=== PATIENT | male | born 1955 | race Caucasian/White ===

== ENCOUNTER 2020-09-16 19:02 | Emergency (ER) | payer MEDICAID ==
[~2020-09-16] VITALS: Ht 182.9 cm; Wt 81.7 kg
--- NOTE | ~2020-09-16 | EMS ---
[address] [address] EMS Patient Care Report Name: ROCCO HERNANDEZ Room #: REG DESTINY Sprague#: [id number] Admission: 09/16/20 Attend Phys: Discharge: Date of : 59 Report #: [id number] THIS REPORT FOR: //name// Report Transmitted: 09/16/2020 19:34 EMS Care Summary [facility] MED-ACT Incident [id number] @ 09/16/2020 18:16 Incident Location [address] [place] [address] Patient ROCCO HERNANDEZ Male, 65 Years 1955 Patient Address [address] [place] [address] Patient History Behavioral/Psychiatric Disorder,Dementia,Hypertension (HTN),Hyperlipidemia,Type 2 Diabetes, Patient Allergies No known allergies, Patient Medications Benazepril, Metformin, Melatonin, Citalopram, Trazodone, Atorvastatin, Gabapentin, Chief Complaint fall Disposition Transported No Lights/[place] Dispatch Reason Falls Transported To [facility] Narrative [address] [address] EMS Patient Care Report Name: ROCCO HERNANDEZ Room #: REG Darcie#: [id number] Admission: 09/16/20 Attend Phys: Discharge: Date of : 59 Report #: [id number] EMS arrived to pt laying supine on the hallway floor being assessed by S47. Staff stated they witnessed the pt fall to the ground. Pt said he just got his feet entangled and tripped. Staff denied complaints from the pt prior/loss of consciousness/blood thinners. Pt denied new neck or back pain/visual disturbances/nausea/headache. Pt did say his eye was "just a little bit sore". Pt has chronic neck and left shoulder pain. He denied any change after the fall. Pt assisted to sitting then standing. Pt sat on cot, secured. Pt to MICU. En route pt said his eye was "sore" but not getting any worse. Biocom- no orders req/rec Pt to room 9, sheet lifted to bed, verbal report to RN Initial Vitals @18:44P: 92,BP: 121/79,SpO2: 96, @PTAP: 96,BP: 151/91,GCS: 14, @18:37P: 97,R: 20,BP: 118/76,Pain: 2/10,GCS: 14,SpO2: 96,Revised Trauma: 12, Assessments @18:26MENTAL:Confused,Person Oriented,Event Oriented,Place Oriented,SKIN:HEENT:Head/Face: Other,Neck/Airway: No Abnormalities,LUNG SOUNDS:General: No Abnormalities,ABDOMEN:General: No Abnormalities,PELVIS//GI:No Abnormalities,EXTREMITIES:Left Arm: No Abnormalities,Right Arm: No Abnormalities,Left Leg: No Abnormalities,Right Leg: No Abnormalities,PULSE:NEURO:No Abnormalities, Impression Injury of Head Procedures @18:30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 PatientResponse: Unchanged@18:26ALS AssessmentResponse: UnchangedSucceeded 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,BP: 151/91 M,PULSE: 96,RR: R,SPO2: Ox,ETCO2: ,BG: ,PAIN: ,GCS: 14, 18:14,Call Received 18:14,Psap Call 18:16,Dispatched 18:17,En Route 18:23,On Scene 18:25,At Patient 18:26,ALS Assessment,Response: UnchangedSucceeded, 18:30,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 Patient,Response: Unchanged 18:35,Depart Scene 18:37,BP: 118/76 M,PULSE: 97,RR: 20 R,SPO2: 96 Ox,ETCO2: ,BG: ,PAIN: 2,GCS: 14, 18:44,BP: 121/79 M,PULSE: 92,RR: R,SPO2: 96 Ox,ETCO2: ,BG: ,PAIN: ,GCS: , 18:45,At Destination [address] [address] EMS Patient Care Report Name: ROCCO HERNANDEZ Room #: REG [facility].#: [id number] Admission: 09/16/20 Attend Phys: Discharge: Date of : 59 Report #: [id number] 19:09,Call Closed Disclaimer v1.1 Copyright 2020 [employer] This EMS Care Summary contains data elements from the applicable legal record (which may be displayed differently). It is designed to provide pertinent information for the following purposes: continuity of care, clinical quality, and state data reporting. The complete legal record is available to ED staff and administrators of the receiving hospital in [facility]'s Patient Tracker. All data is provided "as is."
[2020-09-16] MEDS ORDERED: ACETAMINOPHEN325 M1 PO (21:38)
[2020-09-16] MEDS ORDERED: LIPITOR 40 MG T40 M1 PO (21:38)
[2020-09-16] MEDS ORDERED: CELEXA 20 MG TA20 MG PO (21:40)
[2020-09-16] MEDS ORDERED: BENAZEPRIL HCL20 MG PO (21:40)
[2020-09-16] MEDS ORDERED: NEURONTIN 400400 M1 PO (21:41)
[2020-09-16] MEDS ORDERED: MELATONIN3 M1 PO (21:41)
[2020-09-16] MEDS ORDERED: SUPER THERAVIT1 EACH PO (21:43)
[2020-09-16] MEDS ORDERED: METFORMIN HCL500 MG PO (21:43)
[2020-09-16] MEDS ORDERED: TRAZODONE HCL100 MG PO (21:44)
== END 2020-09-16 22:34 | disposition home or self-care (01) ==
LOC: ER 19:02
DX: S01.111A Laceration without foreign body of right eyelid and periocular area, initial encounter (principal); S80.02XA Contusion of left knee, initial encounter; Z79.899 Other long term (current) drug therapy; W18.39XA Other fall on same level, initial encounter; Y93.89 Activity, other specified; Y92.89 Other specified places as the place of occurrence of the external cause; Y99.8 Other external cause status

== ENCOUNTER 2021-03-10 03:40 | Inpatient (IN) | payer MEDICAID ==
[~2021-03-10] VITALS: Ht 180.3 cm; Wt 81.1 kg
[2021-03-10] VITALS (34 sets, daily range): BP systolic 91–154; BP diastolic 41–77
--- NOTE | ~2021-03-10 | EMS ---
[address] [address] EMS Patient Care Report Name: ROCCO HERNANDEZ Room #: 170-6 ADM IN M.R.#: [id number] Admission: 03/10/21 Attend Phys: Myra Lozoya MD Discharge: Date of : 59 Report #: [id number] THIS REPORT FOR: //name// Report Transmitted: 03/10/2021 04:32 EMS Care Summary [facility] MED-ACT Incident [id number] @ 03/10/2021 02:56 Incident Location [address] [place] [address] Patient ROCCO HERNANDEZ Male, 65 Years 1955 Patient Address [address] [place] [address] Patient History Behavioral/Psychiatric Disorder,Dementia,Hypertension (HTN),Hyperlipidemia,Type 2 Diabetes, Patient Allergies No known allergies, Patient Medications Benazepril, Trazodone, Atorvastatin, Citalopram, Gabapentin, Melatonin, Metformin, Chief Complaint Cough Disposition Transported No Lights/[place] Dispatch Reason Choking Transported To [facility] Narrative [address] [address] EMS Patient Care Report Name: ROCCO HERNANDEZ Room #: 170-6 ADM IN M.R.#: [id number] Admission: 03/10/21 Attend Phys: Myra Lozoya MD Discharge: Date of : 59 Report #: [id number] History- Pt is found laying upright in bed and appears to be sleeping. RN states that when she got on shift at 1800 the pt was more lethargic than normal and sitting slumped in his chair. She notes that he did not eat dinner and then sometime after dinner developed a productive cough that he is not able to fully clear his airway. She states that when she checked his vitals his SPO2 on room air was in the 80s and she placed him on a NC at 2LPM. Pt is able to open his eyes when you talk to him and follow commands but is overall very lethargic. Pt has a history of dementia and is normally altered but not to this extent. Pt's cough is very wet sounding and his lung sounds are course throughout. Pt is unable to complete a stroke scale but is able to use both arms and does not appear to have any facial droop or slurred speech. Pt feels hot to the touch but is afebrile. Pt denies any complaints. Treatment- Vitals. O2 is increased to 4LPM. Pt is transported to [place] and moved to the bed by sheet drag. Report given to the RN. Initial Vitals @03:29P: 104,R: 16,BP: 136/75,SpO2: 96, @03:11P: 104,R: 16,BP: 137/73,Pain: 0/10,GCS: 13,Temp: 98.4F,Glucose: 136,SpO2: 92,Revised Trauma: 12, Assessments @03:34MENTAL:Confused,Person Oriented,SKIN:Hot,HEENT:Neck/Airway: Other,Eyes: Left Pupil: 4-mm,Eyes: Right Pupil: 4-mm,Head/Face: No Abnormalities,LUNG SOUNDS:General: No Abnormalities,Left Upper: No Abnormalities,Right Upper: No Abnormalities,Left Lower: No Abnormalities,Right Lower: No Abnormalities,ABDOMEN:General: No Abnormalities,Left Upper: No Abnormalities,Right Upper: No Abnormalities,Left Lower: No Abnormalities,Right Lower: No Abnormalities,PELVIS//GI:EXTREMITIES:Left Arm: No Abnormalities,Right Arm: No Abnormalities,Left Leg: No Abnormalities,Right Leg: No Abnormalities,PULSE:Radial: 2+ Normal,NEURO:No Abnormalities, Impression Cough Procedures @PTA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 PatientResponse: Unchanged@03:15Oxygen FlowRate: 4 Device: Nasal Cannula (NC) Response: ImprovedSucceeded 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,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 Patient,Response: Unchanged 02:55,Call Received 02:55,Psap Call 02:56,Dispatched 02:58,[place] [address] EMS Patient Care Report Name: ROCCO HERNANDEZ Room #: 170-6 ADM IN .R.#: [id number] Admission: 03/10/21 Attend Phys: Myra Lozoya MD Discharge: Date of : 59 Report #: [id number] 03:05,On Scene 03:07,At Patient 03:11,BP: 137/73 M,PULSE: 104,RR: 16 R,SPO2: 92 Ox,ETCO2: ,B,PAIN: 0,GCS: 13, 03:15,Oxygen FlowRate: 4 Device: Nasal Cannula (NC) Response: ImprovedSucceeded, 03:25,Depart Scene 03:29,BP: 136/75 M,PULSE: 104,RR: 16 R,SPO2: 96 Ox,ETCO2: ,BG: ,PAIN: ,GCS: , 03:36,At Destination 03:52,Call Closed Disclaimer v1.1 Copyright 2020 [employer] This EMS Care Summary contains data elements from the applicable legal record (which may be displayed differently). It is designed to provide pertinent information for the following purposes: continuity of care, clinical quality, and state data reporting. The complete legal record is available to ED staff and administrators of the receiving hospital in [employer]'s Patient Tracker. All data is provided "as is."
[~2021-03-10 03:40] MED LIST: ACETAMINOPHEN325 M1 PO; BENAZEPRIL HCL20 MG PO; CELEXA 20 MG TA20 MG PO; LIPITOR 40 MG T40 M1 PO; MELATONIN3 M1 PO; METFORMIN HCL500 MG PO; NEURONTIN 400400 M1 PO; SUPER THERAVIT1 EACH PO; TRAZODONE HCL100 MG PO
[2021-03-10] MEDS ORDERED: ASA81BEC PO (03:52)
[2021-03-10] MEDS ORDERED: LIPITOR 20 MG T20 M1 PO (03:53)
[2021-03-10] MEDS ORDERED: VITAMIN B-121000 MC2 PO (03:54)
[2021-03-10] MEDS ORDERED: MILK OF MA400 MG/5 M PO (03:56)
[2021-03-10 04:05] LABS: BE(vivo) 1.5 mmol/L (-2 to +3); HCO3 27.8 mmol/L (22.0-26.0); PCO2 50.1 mmHg (35.0-45.0); PO2 55.5 mmHg (80.0-100.0); pH 7.362 (7.360-7.450); sO2 87.5 % (92.0-98.0)
[2021-03-10 04:16] LABS: ABSOLUTE NEUTROPHILS 9.9 thou/uL (1.4-8.2); BASOPHILS 0.5 % (0.0-2.0); EOSINOPHILS 0.4 % (0.0-3.0); HEMATOCRIT 44.3 % (42.0-52.0); HEMOGLOBIN 14.7 gm/dL (14.0-18.0); LYMPHOCYTES 13.3 % (24.0-44.0); MCH 28.5 pg (26.0-34.0); MCHC 33.2 g/dL (28.0-37.0); MONOCYTES 10.6 % (1.0-8.0); PLATELET COUNT 162 thou/uL (150-400); POLYS 75.2 % (36.0-66.0); RBC 5.16 mil/uL (4.50-6.00); RDW 13.4 % (10.5-14.5); WBC 13.2 thou/uL (4.0-11.0)
[2021-03-10 04:23] LABS: ANION GAP 13 mmol/L (7-16); BUN 22 mg/dL (7-18); CALCIUM 8.9 mg/dL (8.5-10.1); CHLORIDE 100 mmol/L (98-107); CO2 27 mmol/L (21-32); CREATININE 1.2 mg/dL (0.7-1.3); GLUCOSE 172 mg/dL (74-106); POTASSIUM 4.2 mmol/L (3.5-5.1); SODIUM 140 mmol/L (136-145)
[2021-03-10 04:28] LABS: URINE BILIRUBIN NEGATIVE (Negative); URINE BLOOD 1+ (Negative); URINE CLARITY CLEAR; URINE COLOR YELLOW; URINE GLUCOSE-RANDOM* NEGATIVE (Negative); URINE KETONES TRACE (Negative); URINE LEUKOCYTES-REFLEX NEGATIVE (Negative); URINE NITRITE-REFLEX NEGATIVE (Negative); URINE PROTEIN (DIPSTICK) NEGATIVE (Negative); URINE SPECIFIC GRAVITY 1.025 (1.005-1.035); URINE UROBILINOGEN 0.2 E.U./dl (0.2-1.0)
[2021-03-10 04:33] LABS: ALBUMIN 3.9 g/dL (3.4-5.0); DIRECT BILIRUBIN 0.2 mg/dL (<0.1-0.2); MAGNESIUM 1.9 mg/dL (1.8-2.4); PHOSPHORUS 3.9 mg/dL (2.5-4.9); SGOT 19 U/L (15-37); SGPT 20 U/L (30-65); TOTAL BILIRUBIN 0.7 mg/dL (0.2-1.0); TOTAL PROTEIN 7.2 g/dL (6.4-8.2); TROPONIN-I <0.06 ng/mL (<0.06)
[2021-03-10 05:02] LABS: BACTERIA-REFLEX None Seen /HPF (None Seen); CASTS None Seen /LPF (None Seen); CRYSTALS None Seen /LPF (None Seen); MUCUS None Seen strn/LPF (None Seen); SQUAMOUS None Seen /LPF (0-3); URINE RBC 3-10 Few /HPF (NONE SEEN); URINE WBC-REFLEX None Seen /HPF (0-5)
[2021-03-10 05:03] LABS: TRANSITIONAL EPITHEL CELL 0-3 Few /LPF (None Seen)
[2021-03-10 05:26] LABS: BE(vivo) 1.8 mmol/L (-2 to +3); HCO3 27.8 mmol/L (22.0-26.0); PCO2 48.8 mmHg (35.0-45.0); PO2 99.8 mmHg (80.0-100.0); pH 7.373 (7.360-7.450); sO2 97.3 % (92.0-98.0)
--- NOTE | 2021-03-10 08:45 | NUR ---
discussed during am rounds and los. cm unable to visit with him rt on bipap.
--- NOTE | 2021-03-10 08:50 | EKG ---
[address] [address] ELECTROCARDIOGRAM REPORT Name: DAVIDROCCO Khadijah Room #: 247-P ADM IN M.R.#: [id number] Admission: 03/10/21 Attend Phys: Myra Lozoya MD Discharge: Date of : 59 Report #: [id number] [facility] ED Test Date: 2021-03-10 Test Time: 03:58:35 Pat Name: ROCCO HERNANDEZ Department: Room: 247 Gender: M Paraplanner: KARINA : 1955 Requested By: Kenn Tam Order Number: [id number] MD: Andres Cazares Measurements Intervals [place] Rate: 103 P: 33 ID: 142 QRS: 22 QRSD: 88 T: 29 QT: 365 QTc: 478 Interpretive Statements Sinus tachycardia Borderline prolonged QT interval No previous ECG available for comparison Electronically Signed On 03-10-2021 8:50:46 CDT by Andres Cazares [email or web address] <ELECTRONICALLY SIGNED> By: Andres Cazares MD, [facility] 03/10/21 0850 [id number] Andres Cazares MD, FACC /EPI
--- NOTE | 2021-03-10 12:24 | NUR ---
SPEAKING WITH [facility]HA CASE MANAGEMENT, PT IS INDEED FROM [facility] [place] USED TO BE CALLED FALSE PASS. PER TRISHA, PT HAS A GUARDIAN FOR CARE, ALSO WAS TOLD THAT CARDIAC MONITORING DEVICE WAS SUPPOSED TO ARRIVE WITH PATIENT OR SHOULD BE NEXT TO PT IN BED AT THE PRIOR FACILITY, CM WAS WONDERING IF THE DEVICE WAS SET UP HERE, PT HAS NO BELONGINGS IN THE ROOM AT THIS TIME. PAST HISTORY OF COVID, AND RECEIVED 2 ROUNDS OF VACCINE. PT IS ON REG DIET BACK AT THE FACILITY
--- NOTE | 2021-03-10 23:34 | NUR ---
PT ORIENTED TO PERSON AND SOMETIMES PLACE. DENIES ANY PAIN. NO SOA NOTED. FREQUENT NON-PRODUCTIVE COUGH. COUGH BETTER AFTER PRN GUAIFENESIN AND RT TX. SPO2 >92% ON 4L NC. HE IS VERY RESTLESS IN THE BED, PICKING AT LINES AND AT TIMES TRYING TO GET OUT OF BED TO URINATE. FREQUENT ORIENTATION PROVIDED. NOTIFIED SHEAR OPERATOR MARE OF PT'S INSOMNIA AND RESTLESSNESS. ORDERS RECEIVED. WILL GIVE SLEEPING MEDICATION AND MONITOR FURTHER.
[2021-03-11] VITALS (13 sets, daily range): BP systolic 124–159; BP diastolic 49–83
--- NOTE | 2021-03-11 03:40 | NUR ---
PT SLEPT FOR A SHORT WHILE AFTER RECEIVING SLEEPING MEDICATION. HE THEN BECAME VERY RESTLESS, TRYING TO GET OUT OF BED, TAKING OFF HIS OXYGEN AND DISCONNECTING LINES/TUBING. NOTIFIED FERRYBOAT HELPER MARE. IM OLANZAPINE GIVEN. PT'S BEHAVIOR IMPROVED SLIGHTLY. HE STILL OCCASSIONALLY TAKES OFF HIS OXYGEN AND ATTEMPTS TO GET OUT OF BED. BED ALARM ON. FALL PRECAUTIONS IN PLACE. HE IS EASILY REDIRECTED BUT DOES NOT REMEMBER INSTRUCTIONS FOR LONG. VSS. NO SOA NOTED. NOT PROGRESSING WELL TOWARD POC GOALS. WILL CONTINUE TO MONITOR FURTHER.
[2021-03-11 05:14] LABS: HEMATOCRIT 39.2 % (42.0-52.0); HEMOGLOBIN 13.1 gm/dL (14.0-18.0); MCH 28.8 pg (26.0-34.0); MCHC 33.5 g/dL (28.0-37.0); MCV 86.1 fL (80.0-100.0); RBC 4.55 mil/uL (4.50-6.00); RDW 13.5 % (10.5-14.5); WBC 8.3 thou/uL (4.0-11.0)
[2021-03-11 05:19] LABS: CALCIUM 8.8 mg/dL (8.5-10.1); CREATININE 1.1 mg/dL (0.7-1.3); POTASSIUM 3.5 mmol/L (3.5-5.1)
--- NOTE | 2021-03-11 05:47 | NUR ---
TITRATED OXYGEN DOWN FROM 4L NC TO 2LNC. PT TOOK OFF OXYGEN AGAIN. HIS SPO2 IS CURRENTLY 92-95% ON RA. PROGRESSING TOWARD RESPIRATORY POC GOALS.
--- NOTE | 2021-03-11 08:34 | NUR ---
PT REFUSING BREAKFAST, STATING, "I DON'T USUALLY EAT BREAKFAST." PT OFFERED ENSURE, PUDDING OR SOMETHING TO DRINK. PT DECLINED. WILL CONTINUE TO ENCOURAGE PO INTAKE.
--- NOTE | 2021-03-11 17:41 | NUR ---
SPOKE W/ PT'S GUARDIAN, IBETH, UPDATE GIVEN. PT MORE ALERT, STILL CONFUSED TO PLACE, TIME AND SITUATION. PT MOSTLY REDIRECTABLE. STILL ATTEMPTS TO UNSAFELY EXIT THE BED AND NEEDS CLOSE SUPERVISION. PT'S PO INTAKE IMPROVED. PT ON ROOM AIR WITHOUT PROBLEMS. OVERALL, PT PROGRESSING TOWARD GOALS.
[2021-03-12 05:20] LABS: HEMATOCRIT 35.7 % (42.0-52.0); HEMOGLOBIN 12.3 gm/dL (14.0-18.0); MCH 29.3 pg (26.0-34.0); MCHC 34.4 g/dL (28.0-37.0); MCV 85.2 fL (80.0-100.0); RBC 4.19 mil/uL (4.50-6.00); RDW 12.9 % (10.5-14.5)
[2021-03-12 05:43] LABS: CALCIUM 9.2 mg/dL (8.5-10.1); CREATININE 1.1 mg/dL (0.7-1.3); POTASSIUM 4.3 mmol/L (3.5-5.1)
[2021-03-12 05:47] VITALS: BP 136/73
--- NOTE | 2021-03-12 06:17 | NUR ---
PT MAKING SLOW PROGRESS TOWARDS GOALS. PT ABLE TO TAKE PUDDING AND NECTAR THICK FLUIDS WITHOU COUGHING/CHOKING. DID NEED TO CRUSH MEDS PT WOULD SPIT THEM OUT BEFORE SWALLOWING. ORIENTED TO NAME BUT NOT LOCATION, DATE OR SITUATION. OVERNIGHT NIGHT PT INSISTED THAT HE WAS IN A STORAGE ROOM NOT IN A HOSPITAL. PT ALSO UNABLE TO RETAIN INSTRUCTIONS TO KEEP TELEMETRY LEADS ON. PT FREQUENTLY PULLING THE LEADS OFF. REPLACED ON MULTIPLE OCCASIONS. DID OBTAIN ORDER TO SPOT CHECK AND FOR PROVIDER TO DECIDE NEED FOR TELEMETRY TODAY.
[2021-03-12 07:38] VITALS: BP 126/84
--- NOTE | 2021-03-12 12:09 | HC ---
[facility] [place] [address] CONSULTATION Name: ROCCO HERNANDEZ Khadijah Room #: 351-P ADM IN M.R.#: [id number] Admission: 03/10/21 Attend Phys: Myra Lozoya MD Discharge: Date of : 59 Report #: [id number] THIS REPORT FOR: cc: Meka Gautam MD, Lou K. MD Barry, Joseph W. MD ~ DOC #: [id number] Chris Leyva MD DATE OF SERVICE: 03/11/2021 INFECTIOUS DISEASE CONSULTATION ATTENDING PHYSICIAN: Dr. Lozoya. REASON FOR EVALUATION: Pneumonitis, complicated by respiratory failure, also has Gram-positive septicemia. HISTORY OF PRESENT ILLNESS: Chart was reviewed. The patient examined. This is a 65-year-old gentleman who has underlying COPD, who lives in a facility with underlying depression, psychosis disorder who additionally has type 2 diabetes mellitus complicated by stroke, vasculopathy who was noted to have increasing dyspnea, also more encephalopathy. He is unable to give too much details of the history, is not sure where he is at. Apparently, he has had productive cough, not certain about fevers. He reports some chills. Initial ABGs showed hypoxemia, pO2 of 55.5 on 4 liters. Lactic acid was 1.1. Influenza antigen was negative. Coronavirus testing was negative. Urinalysis was otherwise unremarkable. Chest x-ray did show right basilar pneumonitis. As far as the evaluation, blood cultures were collected at time of admission, now on 2 growing gram-positive cocci. He is currently on supplemental oxygen 2 liters per nasal cannula. ALLERGIES: None known. MEDICATIONS: Include methylprednisolone, enoxaparin, melatonin, trazodone, olanzapine, famotidine, guaifenesin, budesonide, ipratropium, albuterol inhaler, citalopram, lisinopril, azithromycin, vancomycin, and received ceftriaxone. PAST MEDICAL HISTORY: As noted above, history of dementia, hypertension, known vasculopathy with previous NE, CVA, diabetes mellitus. SOCIAL HISTORY: Unknown. FAMILY HISTORY: Noncontributory. REVIEW OF SYSTEMS: Not reliably obtained. [address] [address] CONSULTATION Name: DAVIDROCCO Khadijah Room #: 351-P [facility] IN ..#: [id number] Admission: 03/10/21 Attend Phys: Myra Lozoya MD Discharge: Date of : 59 Report #: [id number] PHYSICAL EXAMINATION: GENERAL: He appears chronically ill and undernourished. He does arouse. He is quite encephalopathic, mild to moderate distress. VITAL SIGNS: Temperature 98.5, pulse 76, respirations 13, blood pressure 141/62. SKIN: Warm, dry, no rashes. HEENT: Normocephalic. Extraocular muscles intact. Nasal cannula in place. NECK: Supple. LUNGS: Scattered coarse breath sounds, diminished overall. HEART: Regular, occasional ectopy, has a soft systolic murmur. ABDOMEN: Mildly distended, slightly firm, nontender. EXTREMITIES: No cyanosis. GENITOURINARY AND RECTAL: Deferred. LABORATORY DATA: Again blood cultures 1 out of 2 with gram-positive cocci. Most recent electrolytes, sodium 140, potassium 3.5, chloride 102, bicarbonate is 32, anion gap of 6, BUN and creatinine 15 and 1.1, glucose of 125. CBC: White count of 8.3, H and H 13.1 and 32.9, platelets of 153. CTA chest PE protocol showed no evidence of PE, right basilar partially consolidative infiltration with some mucus plugging. Normal heart size, calcified coronary artery, implanted electronic cardiac device. Urinalysis unremarkable. ASSESSMENT AND PLAN: 1. Pneumonitis, likely on a basis of aspiration. The patient did get some significant underlying issues. We will continue broad spectrum therapy. We will add gram-negative coverage in addition to vancomycin in the event of 1/2 positive blood cultures may well be a false positive or contaminant, could be pneumococcus. We will await the ID and susceptibilities as information becomes available. He remains quite tenuous. At this point, we will continue to monitor expectantly. Overall, prognosis appears guarded. MD RAJEEV Valentin/SAWYER <ELECTRONICALLY SIGNED> By: Chris Leyva MD 03/12/21 1209 [id number] Chris Leyva MD /nt
--- NOTE | 2021-03-12 13:48 | NUR ---
PRASHANTH reviewed chart and spoke with nursing and attending physician. Pt was transferred to from ICU. Pt is progressing towards goals for discharge. Pt is on IV abx and IV steroids. PT/OT ordered today. ST is following. Pureed diet and nectar thickened liquids are being recommended at this time. PRASHANTH faxed updated clinical info to Maddy, in admissions at [facility], for review. PRASHANTH requested DPOA documentation to be faxed to PRASHANTH, to place on pt's chart. Jose Anthony is pt's DPOA. PRASHANTH spoke with Jose via phone to provide update. Contact info for PRASHANTH and nurses station provided to Jose. Plan is for pt to return to [facility] when medically stable. PRASHANTH is following to assist as needed with discharge planning.
[2021-03-12 15:32] VITALS: BP 128/89
--- NOTE | 2021-03-12 17:45 | NUR ---
PATIENT HAS NO C/O SHORTNESS OF BREATH OR CHEST PAIN. PATIENT FOLLOWING ASPIRATION PRECAUTION ORDERS AND DIET ORDERS. PATIENT ACCIDENTALLY PULLED OUT IV DURING TRANSFER FROM CHAIR TO BED, REPLACED IV. NO OTHER ACUTE CHANGES THIS SHIFT, SEE CHARTING.
[2021-03-12 20:27] VITALS: BP 138/69
--- NOTE | 2021-03-12 22:51 | NUR ---
PT BECAME AGITATED DURING SHIFT REPORT. PT BEGAN YELLING AND WAS DEMANDING TO "GO INSIDE." HE STATED HE WAS "ON A BASKETBALL COURT" AND THAT HE "WANTS TO GO INSIDE" TO HIS ROOM. ATTEMPTED REALITY ORIENTATION PT WAS STANDING NEXT TO THE BED BY DIRECTING HIM TO LOOK AT THE BED AND TO LOOK AT THE CEILING TO TAKE. THIS DID NOT AID HIM IN RECOGNIZING THAT HE WAS IN A ROOM HE CONTINUED TO INSIST HE WAS ON A BASKETBALL COURT AND DEMANDED TO GO INSIDE. UNABLE TO DIRECT PT FROM LEAVING THE ROOM. PT DID BALL UP HIS FISTS AND BEGIN TO RAISE THEM WHEN HE WAS GRABBED BY STAFF AND WALKED BACK TO BED. PT WAS YELLING, CUSSING ON ONCE IN BED WAS TRYING TO KICK AND AND PUSH PEOPLE OFF HIS ARMS. BL SOFT WRIST RESTRAINTS PLACED AND ORDER OBTAINED FROM LIP. ZYPREXA IM DOSE GIVEN. AT 2150 PT CALM, ORIENTED TO NAME AND "I GUESS SO" WHEN ASKED IF HE WAS AWARE HE WAS IN THE HOSPITAL. PT THEN STARTED COUGHING, ATTEMPTING TO CLEAR HIS THROAT. HE WAS ALSO OBSERVED SNORTING IF HE WAS ATTEMPTING TO PULL AND CLEAR SOME SECRETIONS. RESTRAINTS REMOVED WHILE PT WAS COUGHING. RN STAYED AT BEDSIDE WHILE PT HAD A FEW MOMENTS OF HARSH COUGHING. SMALL AMOUNTS OF CLEAR STRINGY SPUTUM SPIT OUT. COUGHING SPELL LASTED APPROXIMATELY 10 MINUTES. KEPT RESTRAINTS OFF IN CASE PT WOULD POSSIBLE DISPLAY THE UNIVERSAL SIGN OF CHOKING BUT NOT BE ABLE TO VERBALIZE IT. FORTUNATELY THIS ALL SUBSIDED IN ABOUT TEN MINUTES. DID LEAVE RESTRAINTS OFF. PT DID GET UP ONCE AND WAS LOOKING AROUND HIS ROOM FOR HIS BLUE SUITCASE WHICH IS IN "ROOM 313." PT WOULD NOT ACCEPT REALITY ORIENTATION THAT HE WAS NOT IN HIS HOME FACILITY, THAT HE WAS IN THE HOSPITAL IN ROOM 351. VISUAL AND VERBAL CUES WERE UNSUCCESFUL IN REORIENTING HIM. AFTER A FEW MINUTES OF CUSSING PT LAYED DOWN BACK IN BED. "YOU ALL JUST WANT TO ARGUE WITH ME, LIKE YOU ALL FUCKING KNOW EVERYTHING." WILL HOLD OFF ON PO FOR THE NIGHT EXCEPT SWABS AND ASK DAY RN TO DISCUSS WITH PHYSICIAN FOR ANY FURTHER NEED TO EVAL SWALLOWING.
[2021-03-13 05:31] VITALS: BP 127/71
[2021-03-13 05:33] LABS: HEMATOCRIT 37.7 % (42.0-52.0); HEMOGLOBIN 12.6 gm/dL (14.0-18.0); MCH 28.6 pg (26.0-34.0); MCHC 33.5 g/dL (28.0-37.0); MCV 85.4 fL (80.0-100.0); RBC 4.41 mil/uL (4.50-6.00); RDW 13.1 % (10.5-14.5); WBC 10.1 thou/uL (4.0-11.0)
[2021-03-13 06:02] LABS: CALCIUM 9.3 mg/dL (8.5-10.1); CREATININE 1.1 mg/dL (0.7-1.3); POTASSIUM 3.4 mmol/L (3.5-5.1)
[2021-03-13 07:47] VITALS: BP 147/79
--- NOTE | 2021-03-13 13:36 | NUR ---
SW reviewed chart and spoke with nursing and attending physician. Pt is progressing towards goals for discharge. Discharge back to [facility] is anticipated for tomorrow. Pt is on IV abx and IV steroids. Pt became agitated last evening and was placed in restraints. Pt has been out of restraints since early this morning. PRASHANTH faxed clinical/therapy updates to [facility]. Spoke with Maddy in admissions, who confirms they are able to accept pt back tomorrow. The facility will arrange transportation. PRASHANTH left voice message for pt's DPOA, Jose, to provide update and notify of anticipated discharge for tomorrow. DPOA ppwk placed on pt's chart. SW is following to assist as needed with discharge planning.
[2021-03-13 15:51] VITALS: BP 154/92
--- NOTE | 2021-03-13 17:01 | NUR ---
assumed care of pt at 0700. pt in no acute distress. confused. impulsive. otherwise largely cooperative. mostly impulsive when needing to void. small appetite. needs frequent redirection and reorientation. anticipate d/c back to facility tomorrow.
[2021-03-13 19:45] VITALS: BP 138/76
[2021-03-14 05:26] LABS: HEMATOCRIT 36.8 % (42.0-52.0); HEMOGLOBIN 12.3 gm/dL (14.0-18.0); MCH 28.6 pg (26.0-34.0); MCHC 33.5 g/dL (28.0-37.0); MCV 85.4 fL (80.0-100.0); RBC 4.31 mil/uL (4.50-6.00); RDW 13.2 % (10.5-14.5); WBC 9.1 thou/uL (4.0-11.0)
[2021-03-14 05:37] LABS: CALCIUM 8.8 mg/dL (8.5-10.1); POTASSIUM 3.1 mmol/L (3.5-5.1)
[2021-03-14 05:54] VITALS: BP 124/80
[2021-03-14 06:59] VITALS: BP 146/87
--- NOTE | 2021-03-14 07:26 | NUR ---
PT MAKING POOR PROGRESS TOWARDS GOALS. ORIENTED TO NAME BUT NOT ABLE TO ORIENT PATIENT TO DATE, LOCATION OR SITUATION. PT WAS ABLE TO STATE "I DON'T REALLY KNOW WHERE I AM."
[2021-03-14 08:10] VITALS: BP 146/87
[2021-03-14] MEDS ORDERED: CEFDINIR300 MG PO (10:30)
--- NOTE | 2021-03-14 12:49 | NUR ---
DISCHARGE NOTE: PRASHANTH reviewed chart and spoke with nursing and attending physician. Pt is medically stable to return to [facility] today. PRASHANTH spoke with Maddy in admissions to provide update and notify of discharge. W/c van transportation scheduled for 1600 today per facility's arrangements. Awaiting finalized discharge orders/summary at this time. PRASHANTH left voice message for pt's DPOA, Jose, to notify of discharge. Chart copy requested. Nursing provided with number to call report. PRASHANTH is following to finalize discharge plan.
[2021-03-14] MEDS ORDERED: IPRAT-ALBUT 0.5-3 ML INH (13:26)
[2021-03-14] MEDS ORDERED: PREDNISONE 10 M10 M1 PO (13:27)
--- NOTE | 2021-03-14 15:20 | NUR ---
ASSUMED PATIENT CARE AT 0700. ALERT TO SELF. AMBULATED IN ROOM. NO DISTRESS NOTED. DC TO SNF NOW.
== END 2021-03-14 15:19 | DRG 871 ==
LOC: ER 03:40 → ICU 05:05 → EROBS 05:05 → ICU 06:41 → 3W 03-11 20:15
PROVIDERS: Emergency Medicine; Hospitalist; ADMIT Internal Medicine; ATTEND Internal Medicine
PROC: 5A09357 Assistance with Respiratory Ventilation, Less than 24 Consecutive Hours, Continuous Positive Airway Pressure (ICD-10-PCS; principal; 2021-03-10)
DX: A41.9 Sepsis, unspecified organism (principal); J69.0 Pneumonitis due to inhalation of food and vomit; J96.01 Acute respiratory failure with hypoxia; F03.91 Unspecified dementia, unspecified severity, with behavioral disturbance; J44.1 Chronic obstructive pulmonary disease with (acute) exacerbation; M31.9 Necrotizing vasculopathy, unspecified; G93.40 Encephalopathy, unspecified; T17.908A Unspecified foreign body in respiratory tract, part unspecified causing other injury, initial encounter; I10 Essential (primary) hypertension; D72.829 Elevated white blood cell count, unspecified; I25.10 Atherosclerotic heart disease of native coronary artery without angina pectoris; E86.0 Dehydration; J44.9 Chronic obstructive pulmonary disease, unspecified; X58.XXXA Exposure to other specified factors, initial encounter; F32.9 Major depressive disorder, single episode, unspecified; E11.9 Type 2 diabetes mellitus without complications; Z20.822 Contact with and (suspected) exposure to COVID-19; Z79.899 Other long term (current) drug therapy; Z79.84 Long term (current) use of oral hypoglycemic drugs; Z79.82 Long term (current) use of aspirin; I25.2 Old myocardial infarction; Z86.73 Personal history of transient ischemic attack (TIA), and cerebral infarction without residual deficits; Y93.89 Activity, other specified; Y92.89 Other specified places as the place of occurrence of the external cause; Y99.8 Other external cause status
CPT/HCPCS: 10078; 10879

== ENCOUNTER 2021-06-19 11:15 | Inpatient (IN) | payer OTHER, MEDICAID ==
[~2021-06-19] VITALS: Ht 180.3 cm; Wt 89.9 kg
[~2021-06-19 11:15] MED LIST changes: +ASA81BEC PO; +CEFDINIR300 MG PO; +IPRAT-ALBUT 0.5-3 ML INH; +LIPITOR 20 MG T20 M1 PO; +MILK OF MA400 MG/5 M PO; +PREDNISONE 10 M10 M1 PO; +VITAMIN B-121000 MC2 PO
[2021-06-19 11:29] VITALS: BP 117/72
[2021-06-19 11:36] LABS: HEMATOCRIT 40.1 % (42.0-52.0); HEMOGLOBIN 13.5 gm/dL (14.0-18.0); MCH 28.4 pg (26.0-34.0); MCHC 33.7 g/dL (28.0-37.0); MCV 84.5 fL (80.0-100.0); PLATELET COUNT 199 thou/uL (150-400); RBC 4.74 mil/uL (4.50-6.00); RDW 13.7 % (10.5-14.5); WBC 17.1 thou/uL (4.0-11.0)
[2021-06-19 11:52] LABS: CALCIUM 8.9 mg/dL (8.5-10.1); CREATININE 1.3 mg/dL (0.7-1.3); POTASSIUM 3.7 mmol/L (3.5-5.1)
[2021-06-19 11:54] LABS: ALBUMIN 3.5 g/dL (3.4-5.0); DIRECT BILIRUBIN 0.2 mg/dL (<0.1-0.2); TOTAL BILIRUBIN 0.9 mg/dL (0.2-1.0); TOTAL PROTEIN 6.7 g/dL (6.4-8.2)
[2021-06-19 11:55] LABS: URINE BILIRUBIN NEGATIVE (Negative); URINE BLOOD NEGATIVE (Negative); URINE CLARITY CLEAR; URINE COLOR YELLOW; URINE GLUCOSE-RANDOM* 3+ (Negative); URINE KETONES NEGATIVE (Negative); URINE LEUKOCYTES-REFLEX NEGATIVE (Negative); URINE NITRITE-REFLEX NEGATIVE (Negative); URINE PROTEIN (DIPSTICK) TRACE (Negative)
[2021-06-19 12:04] LABS: BE(vivo) 5.3 mmol/L (-2 to +3); HCO3 30.8 mmol/L (22.0-26.0); PCO2 48.4 mmHg (35.0-45.0); PO2 52.5 mmHg (80.0-100.0); pH 7.422 (7.360-7.450); sO2 87.5 % (92.0-98.0)
[2021-06-19 12:34] LABS: ABSOLUTE NEUTROPHILS 15.6 thou/uL (1.4-8.2)
--- NOTE | 2021-06-19 12:36 | EKG ---
[address] [address] ELECTROCARDIOGRAM REPORT Name: ROCCO HERNANDEZ Room #: REG DESTINY Sprague#: [id number] Admission: 06/19/21 Attend Phys: Discharge: Date of : 59 Report #: [id number] [facility] ED Test Date: 2021-06-19 Test Time: 11:24:44 Pat Name: ROCCO HERNANDEZ Department: Room: Gender: Sausage Smoker: ERIBERTO : 1955 Requested By: Divina Burdick Order Number: [id number] MD: Lito Schuler Measurements Intervals [place] Rate: 120 P: 30 TX: 122 QRS: 23 QRSD: 101 T: 46 QT: 360 QTc: 509 Interpretive Statements Sinus tachycardia Prolonged QT interval Compared to ECG 03/10/2021 03:58:35 No significant changes Electronically Signed On 06-19-2021 12:36:35 CDT by Lito Schuler [email or web address] <ELECTRONICALLY SIGNED> By: Lito Schuler MD, [facility] 06/19/21 1236 [id number] Lito Schuler MD, FACC /EPI
[2021-06-19] MEDS ORDERED: VITAMIN D325 MC3 PO (15:36)
[2021-06-19] MEDS ORDERED: NOVOLOG100 UNIT/M SUBQ (15:38)
[2021-06-20 06:55] VITALS: BP 124/71
[2021-06-20 08:00] VITALS: BP 145/85
[2021-06-20] MEDS ORDERED: IPRAT-ALBUT 0.5-3 ML INH (09:54)
[2021-06-20 11:50] VITALS: BP 150/82
--- NOTE | 2021-06-20 11:58 | NUR ---
Case opened to follow for dc planning. 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 His dpoa for hc if Jose Anthony. Message left for Jose to confirm contact info for updates and plan [facility] [employer]der spoke with admssions and they are holding his bed. They report he is up ad mulugeta in the facility with supervision. He does have some dementia. He has had two covid vaccines earlier this year and is covid neg upon admission. Clnical updated faxed to admissions. Pt here with respiratory failure and fever. No weekend dc anticipated. Will follow and assist with his return [facility] the [facility] once medically ready.
[2021-06-20 16:35] VITALS: BP 153/92
[2021-06-20 20:45] VITALS: BP 144/83
--- NOTE | 2021-06-20 21:24 | NUR ---
PT IS STILL CONFUSED. CALLING OUT "CUT ME LOOSE" AND HELP ME. ALERT TO SELF AND PALCE. PT ALSO IS CONFUSED WHEN CONVERSING.SR ON TELEMETRY. GIVEN WATER. SWALLOWING MEDS WITH NO PROBLEMS.PRN AND SCHEDULED MEDS GIVEN. WAITING FOR PT TO RELAX AND CALM DOWM.
[2021-06-21 00:45] VITALS: BP 125/71
[2021-06-21 04:45] VITALS: BP 142/84
[2021-06-21 05:04] LABS: CALCIUM 8.5 mg/dL (8.5-10.1); CREATININE 1.3 mg/dL (0.7-1.3); MAGNESIUM 1.9 mg/dL (1.8-2.4); POTASSIUM 3.8 mmol/L (3.5-5.1)
[2021-06-21 05:33] LABS: ABSOLUTE NEUTROPHILS 8.7 thou/uL (1.4-8.2); BASOPHILS 0.3 % (0.0-2.0); EOSINOPHILS 1.8 % (0.0-3.0); HEMATOCRIT 36.9 % (42.0-52.0); HEMOGLOBIN 12.4 gm/dL (14.0-18.0); LYMPHOCYTES 18.5 % (24.0-44.0); MCH 28.9 pg (26.0-34.0); MCHC 33.6 g/dL (28.0-37.0); MONOCYTES 7.2 % (1.0-8.0); PLATELET COUNT 193 thou/uL (150-400); POLYS 72.2 % (36.0-66.0); RDW 13.5 % (10.5-14.5)
--- NOTE | 2021-06-21 05:59 | NUR ---
ORDERS TO STRAIGHT CATH X 1 RECEIVED. SOON I REMOVED THE CONDOM CATH, PT URINATED IN THE BED, THEN IN A URINAL VOIDED 300CC.
[2021-06-21 07:45] VITALS: BP 148/59
[2021-06-21 12:29] VITALS: BP 138/64
[2021-06-21 15:50] VITALS: BP 139/77
[2021-06-21 19:17] VITALS: BP 141/80
--- NOTE | 2021-06-22 01:37 | NUR ---
ASSUMED PT CARE AT AROUND 1915 HRS. PT OBSERVED IN BED SLEEPING, AROUSABLE AND ABLE TO ANSWER QUESTIONS. DENIES PAIN. PT ABLE TO TAKE HS MEDS WITHOUT ANY DIFFICULTY. AFEBRILE. ON ROOM AIR. PT IS COOPERATIVE WITH CARES. WILL CONTINUE WITH POC TILL EOS.
[2021-06-22 04:41] VITALS: BP 137/71
[2021-06-22 05:12] LABS: HEMATOCRIT 35.2 % (42.0-52.0); HEMOGLOBIN 11.7 gm/dL (14.0-18.0); MCH 28.5 pg (26.0-34.0); MCHC 33.1 g/dL (28.0-37.0); MCV 86.2 fL (80.0-100.0); RBC 4.08 mil/uL (4.50-6.00); RDW 14.2 % (10.5-14.5); WBC 9.8 thou/uL (4.0-11.0)
[2021-06-22 05:34] LABS: CALCIUM 8.3 mg/dL (8.5-10.1); CREATININE 1.2 mg/dL (0.7-1.3); MAGNESIUM 1.7 mg/dL (1.8-2.4); POTASSIUM 3.8 mmol/L (3.5-5.1)
[2021-06-22 08:00] VITALS: BP 155/182
[2021-06-22 12:00] VITALS: BP 152/96
[2021-06-22 16:10] VITALS: BP 154/104
--- NOTE | 2021-06-22 18:51 | NUR ---
PT DID NOT CAUSE ANY ISSUES ON DAY SIDE. OBEY COMMANDS AND WOULD CALL WHEN NEEDING ASSISTANCE. PT SITTING AT SIDE OF BED EATTING. FOLLOWING POC WITH IVPB ANTIBIOTICS AND IVF.
[2021-06-22 20:45] VITALS: BP 146/75
[2021-06-23 04:45] VITALS: BP 150/81; BP 159/105
--- NOTE | 2021-06-23 07:56 | NUR ---
CONFUSED BUT NOT TRYING TO CLIMB OUT OF BED THIS SHIFT.SLEPT.MONITOR SHOWS SR.POC CONTINUED.
[2021-06-23 08:15] VITALS: BP 146/85
[2021-06-23 11:50] VITALS: BP 150/91
--- NOTE | 2021-06-23 14:11 | NUR ---
Clinical updated faxed to admissions at [facility]. Discussed with the care team. DC back to the snf 1-2 days.
[2021-06-23 16:40] VITALS: BP 164/74
[2021-06-23 20:15] VITALS: BP 138/62; BP 151/76
[2021-06-24 04:45] VITALS: BP 147/63
--- NOTE | 2021-06-24 07:44 | NUR ---
PATIENT ALERT AND ORIENTED,JUST FORGETFUL AT TIMES AND WILL NOT CALL WHEN USING THE URINAL.BED ALARM ON.DENIES PAIN.MONITOR SHOWS SR.POC CONTINUED.
[2021-06-24 08:03] VITALS: BP 151/84
[2021-06-24 12:30] VITALS: BP 154/85
[2021-06-24] MEDS ORDERED: LEVOFLOXACIN500 MG PO (12:50)
--- NOTE | 2021-06-24 14:44 | NUR ---
Patient to dc to [facility]) today at [address] Rn called report. Chart copied. Transfer forms faxed and rec, Covid screen completed. Notified PARVEZ Garcia of dc and timeframe. no further needs.
[2021-06-24 15:20] VITALS: BP 140/82
== END 2021-06-24 17:00 | DRG 871 ==
LOC: ER 11:15 → EROBS 13:34 → 2N 13:34
PROVIDERS: Emergency Medicine; ADMIT Internal Medicine; ATTEND Internal Medicine
DX: A41.9 Sepsis, unspecified organism (principal); J18.9 Pneumonia, unspecified organism; J96.01 Acute respiratory failure with hypoxia; G92 Toxic encephalopathy; J44.0 Chronic obstructive pulmonary disease with (acute) lower respiratory infection; R65.20 Severe sepsis without septic shock; Z20.822 Contact with and (suspected) exposure to COVID-19; F03.90 Unspecified dementia, unspecified severity, without behavioral disturbance, psychotic disturbance, mood disturbance, and anxiety; I10 Essential (primary) hypertension; F32.9 Major depressive disorder, single episode, unspecified; I25.10 Atherosclerotic heart disease of native coronary artery without angina pectoris; E78.5 Hyperlipidemia, unspecified; R53.81 Other malaise; Z79.82 Long term (current) use of aspirin; I25.2 Old myocardial infarction; Z86.73 Personal history of transient ischemic attack (TIA), and cerebral infarction without residual deficits; Z79.899 Other long term (current) drug therapy
CPT/HCPCS: 10081